=== PATIENT | male | born 1970 | race Caucasian/White ===

== ENCOUNTER 2022-09-02 18:49 | Inpatient (IN) ==
[2022-09-02] MEDS ORDERED: Aspirin 81 MG TAB.CHEW PO ONE (19:20)
[2022-09-02] MEDS ORDERED: *HR* Heparin 5,000 UNIT/ML VIAL IVP PRN ×2 (19:48)
[2022-09-02] MEDS ORDERED: *HR* Heparin 5,000 UNIT/ML VIAL IVP ONE (19:48)
[2022-09-02 20:04] LABS: Hematocrit 42.6 % (37.5-50.1); Hemoglobin 13.8 g/dL (12.9-16.9); Heparin anti-factor XA UFH < 0.04 IU/mL (0.30-0.70); INR 1.2; Mean Corpuscular HGB Conc 32.4 g/dL (31.6-35.5); Mean Corpuscular Hemoglobin 30.1 pg (28.0-33.3); Platelet Count 181 K/mcL (140-400); Prothrombin Time 13.1 Seconds (9.4-12.1); Red Blood Count 4.58 M/mcL (4.19-5.50); White Blood Count 13.4 K/mcL (4.3-11.1)
[2022-09-02] MEDS ORDERED: Naloxone 0.4 MG/ML INJ IVP PRN (20:11)
[2022-09-02] MEDS ORDERED: Ondansetron 4 MG/2 ML VIAL IVP PRN (20:11)
[2022-09-02] MEDS ORDERED: Acetaminophen 325 MG TABLET PO PRN (20:11)
[2022-09-02] MEDS: Heparin 25,000UNIT/250ML 1/2NS 25,000 UNIT/250 ML IV.SOLN IVC SCH (20:12)
[2022-09-03] MEDS: Fluticasone Propionate Nasal 50 MCG/SPRAY BOTTLE NS SCH ×2 (00:56→11:51)
[2022-09-03 02:54] LABS: Basophils % 0.2 %; Eosinophils # 0.1 K/mcL (0.0-0.6); Eosinophils % 1.3 %; Hematocrit 40.2 % (37.5-50.1); Hemoglobin 13.3 g/dL (12.9-16.9); Immature Granulocytes % 0.5 % (0-4); Lymphocytes # 1.6 K/mcL (0.6-4.6); Lymphocytes % 14.1 %; Mean Corpuscular HGB Conc 33.1 g/dL (31.6-35.5); Mean Corpuscular Hemoglobin 30.3 pg (28.0-33.3); Mean Corpuscular Volume 91.6 fL (83.0-100.0); Mean Platelet Volume 10.9 fL (9.4-12.4); Monocytes # 0.9 K/mcL (0.0-1.3); Monocytes % 8.6 %; Neutrophils # 8.3 K/mcL (1.6-8.9); Platelet Count 176 K/mcL (140-400); Red Blood Count 4.39 M/mcL (4.19-5.50); Segmented Neutrophils % 75.3 %
[2022-09-03 03:11] LABS: Alanine Aminotransferase 29 Units/L (7-52); Albumin 3.9 g/dL (3.5-5.7); Albumin/Globulin Ratio 1.4 (1.1-2.2); Alkaline Phosphatase 41 Units/L (34-104); Aspartate Amino Transferase 15 Units/L (13-39); BUN/Creatinine Ratio 15 (6-26); Bilirubin,Direct 0.1 mg/dL (0.0-0.2); Bilirubin,Indirect 0.8 mg/dL (0.0-1.0); Bilirubin,Total 0.9 mg/dL (0.3-1.0); Blood Urea Nitrogen 14 mg/dL (6-20); Calcium 8.9 mg/dL (8.6-10.3); Carbon Dioxide 23 mEq/L (23-29); Chloride 108 mEq/L (98-107); Chol/HDL Ratio 4.8 (0-4.9); Cholesterol 143 mg/dL (< 200); Globulin 2.7 g/dL (2.4-3.5); Glucose 115 mg/dL (70-105); HDL Cholesterol 30 mg/dL (40-59); LDL Cholesterol,Calculated 47 mg/dL (< 100); Magnesium 1.8 mg/dL (1.6-2.6); Osmolality,Calculated 281 (280-300); Potassium 3.2 mEq/L (3.5-5.1); Sodium 135 mEq/L (136-145); Total Protein 6.6 g/dL (6.4-8.9); Triglycerides 331 mg/dL (< 150)
[2022-09-03 03:23] LABS: Thyroid Stimulating Hormone 1.143 mcIU/mL (0.340-5.600)
[2022-09-03 04:16] LABS: Bilirubin,Urine Negative (Negative); Blood,Urine Negative (Negative); Clarity,Urine Clear (Clear); Color,Urine Light-Yellow (Yellow); Glucose,Urine (UA) Normal (Normal); Ketones,Urine Negative (Negative); Leukocyte Esterase,Urine Negative (Negative); Nitrite,Urine Negative (Negative); Protein,Urine Negative (Neg-Trace)
[2022-09-03] MEDS ORDERED: Ipratropium/Albuterol Neb 3 ML IH PRN (08:00)
[2022-09-03] MEDS ORDERED: Iopamidol - 370 500 ML MLS IVP ONE (10:22)
[2022-09-03] MEDS ORDERED: methylPREDNISolone 125 MG/2 ML VIAL IVP ONE (10:28)
[2022-09-03] MEDS: Budesonide/Formoterol 80/4.5 1 PUFF INH IH SCH ×3 (11:10→21:34)
[2022-09-03] MEDS: levoFLOXacin 750 MG/150 ML 750 MG/150 ML BAG IVPB SCH (11:52)
[2022-09-03] MEDS: Pantoprazole 40 MG VIAL IVP SCH (11:53)
[2022-09-03] MEDS: Loratadine 10 MG TABLET PO SCH (11:53)
[2022-09-03] MEDS: Heparin 25,000UNIT/250ML 1/2NS 25,000 UNIT/250 ML IV.SOLN IVC SCH (13:31)
[2022-09-03] MEDS: Aspirin Enteric Coated 81 MG Tablet PO SCH (16:35)
[2022-09-03 16:55] LABS: Adenovirus Not Detected (Not Detect); Bordetella Pertussis Not Detected (Not Detect); Chlamydophila pneumoniae Not Detected (Not Detect); Coronavirus 229E Not Detected (Not Detect); Coronavirus HKU1 Not Detected (Not Detect); Coronavirus NL63 Not Detected (Not Detect); Coronavirus OC43 Not Detected (Not Detect); Human Metapneumovirus Not Detected (Not Detect); Human Rhinovirus/Enterovirus Not Detected (Not Detect); Influenza A Subtype 2009 H1 Not Detected (Not Detect); Influenza B Not Detected (Not Detect); Mycoplasma pneumoniae Not Detected (Not Detect); Parainfluenza Virus 1 Not Detected (Not Detect); Parainfluenza Virus 2 Not Detected (Not Detect); Parainfluenza Virus 3 Not Detected (Not Detect); Parainfluenza Virus 4 Not Detected (Not Detect); Respiratory Syncytial Virus Not Detected (Not Detect); SARS-CoV-2 Not Detected (Not Detect)
[2022-09-03] MEDS: *HR* Heparin 5,000 UNIT/ML VIAL SQ SCH (18:52)
[2022-09-04 02:51] LABS: Basophils % 0.1 %; Hematocrit 40.6 % (37.5-50.1); Hemoglobin 13.6 g/dL (12.9-16.9); Immature Granulocytes % 0.4 % (0-4); Lymphocytes # 1.2 K/mcL (0.6-4.6); Lymphocytes % 11.9 %; Mean Corpuscular HGB Conc 33.5 g/dL (31.6-35.5); Mean Corpuscular Hemoglobin 30.1 pg (28.0-33.3); Mean Corpuscular Volume 89.8 fL (83.0-100.0); Mean Platelet Volume 10.6 fL (9.4-12.4); Monocytes # 0.7 K/mcL (0.0-1.3); Monocytes % 7.4 %; Platelet Count 219 K/mcL (140-400); Red Blood Count 4.52 M/mcL (4.19-5.50); Red Cell Distribution Width 12.7 % (11.5-14.5); Segmented Neutrophils % 80.2 %
[2022-09-04 03:10] LABS: BUN/Creatinine Ratio 15 (6-26); Blood Urea Nitrogen 14 mg/dL (6-20); Calcium 9.6 mg/dL (8.6-10.3); Carbon Dioxide 23 mEq/L (23-29); Chloride 107 mEq/L (98-107); Glucose 161 mg/dL (70-105); Magnesium 2.2 mg/dL (1.6-2.6); Osmolality,Calculated 286 (280-300); Potassium 4.2 mEq/L (3.5-5.1); Sodium 136 mEq/L (136-145)
[2022-09-04] MEDS: *HR* Heparin 5,000 UNIT/ML VIAL SQ SCH ×2 (05:50→14:21)
[2022-09-04] MEDS: Budesonide/Formoterol 80/4.5 1 PUFF INH IH SCH ×2 (07:33→22:16)
[2022-09-04] MEDS: predniSONE 20 MG TABLET PO SCH (09:58)
[2022-09-04] MEDS: Aspirin Enteric Coated 81 MG Tablet PO SCH (09:59)
[2022-09-04] MEDS: Loratadine 10 MG TABLET PO SCH (09:59)
[2022-09-04] MEDS: Pantoprazole 40 MG VIAL IVP SCH (10:00)
[2022-09-04] MEDS: Fluticasone Propionate Nasal 50 MCG/SPRAY BOTTLE NS SCH (10:00)
[2022-09-04] MEDS: levoFLOXacin 750 MG/150 ML 750 MG/150 ML BAG IVPB SCH (10:00)
[2022-09-04] MEDS ORDERED: Tuberculin Skin Test (PPD) 5 UNIT/0.1 ML VIAL ID ONE (11:30)
[2022-09-05] MEDS: *HR* Heparin 5,000 UNIT/ML VIAL SQ SCH ×4 (01:52→20:15)
[2022-09-05] MEDS: Budesonide/Formoterol 80/4.5 1 PUFF INH IH SCH ×2 (07:40→20:24)
[2022-09-05 08:18] LABS: Basophils % 0.4 %; Eosinophils # 0.1 K/mcL (0.0-0.6); Eosinophils % 1.3 %; Hematocrit 42.3 % (37.5-50.1); Hemoglobin 13.7 g/dL (12.9-16.9); Immature Granulocytes % 0.7 % (0-4); Lymphocytes # 1.6 K/mcL (0.6-4.6); Lymphocytes % 18.6 %; Mean Corpuscular HGB Conc 32.4 g/dL (31.6-35.5); Mean Corpuscular Hemoglobin 30.2 pg (28.0-33.3); Mean Corpuscular Volume 93.2 fL (83.0-100.0); Mean Platelet Volume 10.6 fL (9.4-12.4); Monocytes # 0.7 K/mcL (0.0-1.3); Monocytes % 8.8 %; Neutrophils # 5.9 K/mcL (1.6-8.9); Platelet Count 217 K/mcL (140-400); Red Blood Count 4.54 M/mcL (4.19-5.50); Segmented Neutrophils % 70.2 %; White Blood Count 8.4 K/mcL (4.3-11.1)
[2022-09-05 10:18] LABS: Calcium 9.1 mg/dL (8.6-10.3); Magnesium 2.2 mg/dL (1.6-2.6); Potassium 3.8 mEq/L (3.5-5.1)
[2022-09-05] MEDS: Pantoprazole 40 MG VIAL IVP SCH (10:27)
[2022-09-05] MEDS: predniSONE 20 MG TABLET PO SCH (10:28)
[2022-09-05] MEDS: Loratadine 10 MG TABLET PO SCH (10:28)
[2022-09-05] MEDS: Aspirin Enteric Coated 81 MG Tablet PO SCH (10:28)
[2022-09-05] MEDS: levoFLOXacin 750 MG/150 ML 750 MG/150 ML BAG IVPB SCH (10:32)
[2022-09-05] MEDS: Fluticasone Propionate Nasal 50 MCG/SPRAY BOTTLE NS SCH (10:34)
[2022-09-06] MEDS: *HR* Heparin 5,000 UNIT/ML VIAL SQ SCH ×3 (06:23→21:24)
[2022-09-06] MEDS: Budesonide/Formoterol 80/4.5 1 PUFF INH IH SCH ×2 (07:48→20:30)
[2022-09-06] MEDS: levoFLOXacin 750 MG/150 ML 750 MG/150 ML BAG IVPB SCH (08:56)
[2022-09-06] MEDS: Pantoprazole 40 MG VIAL IVP SCH (08:56)
[2022-09-06] MEDS: predniSONE 20 MG TABLET PO SCH (08:56)
[2022-09-06] MEDS: Aspirin Enteric Coated 81 MG Tablet PO SCH (08:56)
[2022-09-06] MEDS: Loratadine 10 MG TABLET PO SCH (08:56)
[2022-09-06 09:13] LABS: Angiotensin Converting Enzyme 39 U/L (16-85)
[2022-09-06] MEDS: Fluticasone Propionate Nasal 50 MCG/SPRAY BOTTLE NS SCH (10:48)
[2022-09-07] MEDS: *HR* Heparin 5,000 UNIT/ML VIAL SQ SCH ×2 (05:18→16:43)
[2022-09-07 06:35] VITALS: O2SAT 93
[2022-09-07] MEDS: predniSONE 20 MG TABLET PO SCH (09:06)
[2022-09-07] MEDS: Loratadine 10 MG TABLET PO SCH (09:06)
[2022-09-07] MEDS: Pantoprazole 40 MG VIAL IVP SCH (09:06)
[2022-09-07] MEDS: levoFLOXacin 750 MG/150 ML 750 MG/150 ML BAG IVPB SCH (09:06)
[2022-09-07] MEDS: Aspirin Enteric Coated 81 MG Tablet PO SCH (09:06)
[2022-09-07] MEDS: Fluticasone Propionate Nasal 50 MCG/SPRAY BOTTLE NS SCH (09:08)
[2022-09-07] MEDS: Budesonide/Formoterol 80/4.5 1 PUFF INH IH SCH (10:02)
[2022-09-07 15:56] LABS: Quantiferon Nil 0.01 IU/mL
[2022-09-07 16:28] VITALS: BP 151/97; PULSE 62; TEMP 97.6
[2022-09-07 17:04] LABS: Quantiferon Mitogen minus NIL 9.99 IU/mL
[2022-09-08] MEDS ORDERED: levoFLOXacin 750 MG TABLET PO SCH (09:00)
== END 2022-09-07 18:05 | disposition home or self-care (01) | DRG 193 ==
LOC: EMEROOARM 18:49 → 2ANU 18:49 → SUATTDRO 20:17 → 2ANU 21:07 → 3ANU 09-04 18:23
PROVIDERS: ADMIT Internal Medicine; ATTEND Pharmacist